=== PATIENT | female | born 1940 | race Caucasian/White ===

== ENCOUNTER 2023-08-26 05:45 | Day surgery (SDC) | payer OTHER ==
[~2023-08-26] VITALS: Ht 167.6 cm; Wt 63.0 kg
[2023-08-26] MEDS ORDERED: SIMETHICONE 40 MG/0.6 ML ML ONE (06:19)
[2023-08-26] MEDS ORDERED: MIDAZOLAM HCL 5 MG/5 ML VIAL ONE (06:20)
[2023-08-26] MEDS ORDERED: MEPERIDINE 100 MG INJ. 100 MG/ML VIAL ONE (06:20)
[2023-08-26 07:00] VITALS: O2SAT 98
[2023-08-26 10:00] VITALS: BP_SYST 122; PULSE 60; RESP 16
[2023-08-27 09:49] LABS: CLO TEST FOR H. PYLORI NEGATIVE (NEGATIVE)
== END 2023-08-26 09:33 | disposition home or self-care (01) ==
LOC: SDS 05:45 → SMU 05:45 → SDS 09:33
PROVIDERS: ATTEND Internal Medicine Gastroenterology
DX: D50.9 Iron deficiency anemia, unspecified (principal); K63.5 Polyp of colon; K29.50 Unspecified chronic gastritis without bleeding; K57.30 Diverticulosis of large intestine without perforation or abscess without bleeding; K64.8 Other hemorrhoids; Z86.010 Personal history of colon polyps; Z79.82 Long term (current) use of aspirin; Z79.01 Long term (current) use of anticoagulants; Z79.899 Other long term (current) drug therapy
CPT/HCPCS: 36415; 43239; 45380; 87081; 88305; 88312; 88313; J2175; J2250

== ENCOUNTER 2023-08-31 05:27 | Emergency (ER) | payer OTHER ==
[~2023-08-31] VITALS: Ht 167.6 cm; Wt 61.2 kg
[2023-08-31 05:38] VITALS: BP_SYST 180; PULSE 68; RESP 16; TEMP 98.7; O2SAT 98
[2023-08-31] MEDS ORDERED: DOXY100C5 PO (06:18)
[2023-08-31 06:24] VITALS: BP_SYST 180; PULSE 68; RESP 16; TEMP 98.7; O2SAT 98
== END 2023-08-31 06:25 | disposition home or self-care (01) ==
LOC: SED 05:27
DX: L04.0 Acute lymphadenitis of face, head and neck (principal); R22.2 Localized swelling, mass and lump, trunk; Z88.5 Allergy status to narcotic agent; Z79.899 Other long term (current) drug therapy
CPT/HCPCS: 99281; 99283